=== PATIENT | female | born 1970 | race Caucasian/White ===

== ENCOUNTER 2018-06-29 04:55 | Emergency (ER) | payer MEDICAID ==
[~2018-06-29] VITALS: Ht 152.4 cm; Wt 75.5 kg
[~2018-06-29 04:55] MED LIST: FERR1TAB45 PO
[2018-06-29] MEDS ORDERED: LISI-661 PO (05:17)
[2018-06-29] MEDS ORDERED: ASPI81 PO (05:17)
[2018-06-29] MEDS ORDERED: KETOROLAC TROMETHAMINE 60 MG/2 ML VIAL IM ONE (06:30)
[2018-06-29] MEDS ORDERED: KETOROLAC TROMETHAMINE 30 MG/ML VIAL IM ONE (06:30)
[2018-06-29 08:00] VITALS: BP 169/92
== END 2018-06-29 08:13 | disposition home or self-care (01) ==
LOC: EMS 04:57
DX: M54.12 Radiculopathy, cervical region (principal); I10 Essential (primary) hypertension; Z86.73 Personal history of transient ischemic attack (TIA), and cerebral infarction without residual deficits; Z79.899 Other long term (current) drug therapy; Z79.82 Long term (current) use of aspirin; Z91.018 Allergy to other foods
CPT/HCPCS: 72125; 93005; 96372; 99284; J1885

== ENCOUNTER 2018-08-10 21:47 | Emergency (ER) | payer MEDICAID ==
[~2018-08-10] VITALS: Ht 152.4 cm; Wt 75.5 kg
[~2018-08-10 21:47] MED LIST changes: +ASPI81 PO; -FERR1TAB45 PO; +LISI-661 PO
[2018-08-11 00:31] VITALS: BP 154/85
[2018-08-11] MEDS ORDERED: TraMADol HCL 50 MG TABLET PO ONE (00:45)
== END 2018-08-11 00:45 | disposition home or self-care (01) ==
LOC: EMS 21:49
DX: S93.401A Sprain of unspecified ligament of right ankle, initial encounter (principal); I10 Essential (primary) hypertension; Z86.73 Personal history of transient ischemic attack (TIA), and cerebral infarction without residual deficits; Z98.51 Tubal ligation status; Z91.018 Allergy to other foods; Z79.82 Long term (current) use of aspirin; Z79.899 Other long term (current) drug therapy; X50.1XXA Overexertion from prolonged static or awkward postures, initial encounter; Y93.89 Activity, other specified; Y92.89 Other specified places as the place of occurrence of the external cause; Y99.8 Other external cause status
CPT/HCPCS: 29540